=== PATIENT | female | born 1975 | race Caucasian/White ===

== ENCOUNTER 2020-02-02 07:00 | Emergency (ER) | payer OTHER ==
[2020-02-02] MEDS ORDERED: Lorazepam 2 MG/ML VIAL ONE (07:13)
[2020-02-02] MEDS ORDERED: Haloperidol Lactate 5 MG/ML VIAL ONE (07:35)
== END 2020-02-02 08:40 | disposition home or self-care (01) ==
LOC: ERS 07:00
DX: F43.20 Adjustment disorder, unspecified (principal); I10 Essential (primary) hypertension; Z79.899 Other long term (current) drug therapy
CPT/HCPCS: 96372; 99283; J1630; J2060